=== PATIENT | male | born 1985 | race American Indian/Alaskan Native ===

== ENCOUNTER 2023-07-25 04:35 | Emergency (ER) | payer BC, MEDICAID, OTHER ==
[2023-07-25] MEDS: Acetaminophen 500 MG Tab PO ONE (05:02)
== END 2023-07-25 05:40 | disposition home or self-care (01) ==
LOC: CC.ED 04:35
DX: M77.8 Other enthesopathies, not elsewhere classified (principal); I10 Essential (primary) hypertension; Z79.899 Other long term (current) drug therapy
CPT/HCPCS: 73030-LT; 73080-LT; 99283; 99283-25; A9270-GY